=== PATIENT | female | born 1940 | race African-American/Black ===

== ENCOUNTER 2017-03-30 23:34 | Emergency (ER) | payer BC ==
[~2017-03-30 23:34] MED LIST: APRES25 PO; ASA5GR PO; ASAB PO; ASABAYER PO; BETAPACE80 PO; BIDIL20/37 PO; BUM1 PO; COZ50 PO; COZAAR100 MG PO; HYDROCHLOROTHIAZIDE PO; IMDUR30 PO; K-TABS10 MEQ PO; K500 PO; KDUR20 PO; L20 PO; LANTUS FOR SC; LANTUS SC; LANTUSCART PO; LANTUSCART SC; LOP50 PO; MAGOX4 PO; MAX25 PO; METOPROLOL PO; NITROSTAT0.4 MG SL; NOLV10 PO; NOVOLOG; NOVOLOG SC; PRAVACHOL40 MG PO; ROXICET1 TAB PO; SPIRO25 PO; VYTORIN 10/40 T1 TAB PO; VYTORIN PO
== END 2017-03-30 23:50 | disposition home or self-care (01) ==
LOC: ER 23:34
DX: L02.811 Cutaneous abscess of head [any part, except face] (principal); I11.0 Hypertensive heart disease with heart failure; I50.9 Heart failure, unspecified; E11.9 Type 2 diabetes mellitus without complications; Z79.4 Long term (current) use of insulin; Z79.899 Other long term (current) drug therapy
CPT/HCPCS: 70450; 99284; A9270-GY